=== PATIENT | female | born 1990 | race American Indian/Alaskan Native ===

== ENCOUNTER 2016-06-17 18:56 | Emergency (ER) | payer OTHER ==
[2016-06-17] MEDS ORDERED: MOTRIN PO ONE (19:27)
[2016-06-17] MEDS ORDERED: DECADRON IM ONE (23:24)
[2016-06-17] MEDS ORDERED: NORCO 5/325 PO ONE (23:25)
[2016-06-17 23:48] VITALS: BP 122/78
[2016-06-18] MEDS ORDERED: BICILLIN L-A IM ONE (00:18)
--- NOTE | 2016-06-18 00:23 | Emergency Department Report ---
ED ENT HPI - General Chief complaint: Sore Throat Stated complaint: TONSILITIS Time Seen by Provider: 06/17/16 23:23 Source: patient Mode of arrival: Ambulatory Limitations: No Limitations - History of Present Illness Initial comments: 26 y/o female complain of sore throat x 1 day .pt state she have had strep throat 3 times in the past and was told she need tonsil remove. Onset/Timin -: days(s) Location: throat Severity: moderate Severity scale (0 -10): 7 Quality: aching Consistency: constant Improves with: none Worsens with: swallowing - Related Data Previous Rx's Medication Instructions Recorded Last Taken Type Amoxicillin [Trimox CAP] 500 mg PO Q8H #30 capsule 07/25/14 Unknown Rx predniSONE [Deltasone] 20 mg PO TID #15 tab 07/25/14 Unknown Rx Acetaminophen with Codeine 120 ml PO TID #120 elixir 06/18/16 Unknown Rx [Acetaminophen-Codeine ORAL LIQ] predniSONE [Deltasone] 20 mg PO QDAY #5 tab 06/18/16 Unknown Rx Allergies Allergy/AdvReac Type Severity Reaction Status Date / Time No Known Allergies Allergy Verified 06/17/16 19:33 ED Dental HPI - General Chief complaint: Sore Throat Stated complaint: TONSILITIS Time Seen by Provider: 06/17/16 23:23 Source: patient Mode of arrival: Ambulatory Limitations: No Limitations - Related Data Previous Rx's Medication Instructions Recorded Last Taken Type Amoxicillin [Trimox CAP] 500 mg PO Q8H #30 capsule 07/25/14 Unknown Rx predniSONE [Deltasone] 20 mg PO TID #15 tab 07/25/14 Unknown Rx Acetaminophen with Codeine 120 ml PO TID #120 elixir 06/18/16 Unknown Rx [Acetaminophen-Codeine ORAL LIQ] predniSONE [Deltasone] 20 mg PO QDAY #5 tab 06/18/16 Unknown Rx Allergies Allergy/AdvReac Type Severity Reaction Status Date / Time No Known Allergies Allergy Verified 06/17/16 19:33 ED Review of Systems ROS: Stated complaint: TONSILITIS Other details as noted in HPI Constitutional: denies: chills, fever Eyes: denies: eye pain, eye discharge, vision change ENT: throat pain. denies: ear pain Respiratory: denies: cough, shortness of breath, wheezing Cardiovascular: denies: chest pain, palpitations Endocrine: no symptoms reported Gastrointestinal: denies: abdominal pain, nausea, diarrhea Genitourinary: denies: urgency, dysuria, discharge Musculoskeletal: denies: back pain, joint swelling, arthralgia Skin: denies: rash, lesions Neurological: denies: headache, weakness, paresthesias Psychiatric: denies: anxiety, depression Hematological/Lymphatic: denies: easy bleeding, easy bruising ED Past Medical Hx - Past Medical History Previous Medical History?: No Additional medical history: heart murmur - Surgical History Past Surgical History?: No - Social History Smoking Status: Never Smoker Substance Use Type: Alcohol - Medications Home Medications: Home Medications Medication Instructions Recorded Confirmed Last Taken Type Amoxicillin [Trimox CAP] 500 mg PO Q8H #30 capsule 07/25/14 Unknown Rx predniSONE [Deltasone] 20 mg PO TID #15 tab 07/25/14 Unknown Rx Acetaminophen with Codeine 120 ml PO TID #120 elixir 06/18/16 Unknown Rx [Acetaminophen-Codeine ORAL LIQ] predniSONE [Deltasone] 20 mg PO QDAY #5 tab 06/18/16 Unknown Rx ED Physical Exam - General Limitations: No Limitations General appearance: alert, in no apparent distress - Head Head exam: Present: atraumatic, normocephalic - Eye Eye exam: Present: normal appearance, PERRL - ENT ENT exam: Present: normal exam, mucous membranes moist - Expanded ENT Exam Expanded Throat exam: Positive: tonsillar erythema, tonsillomegaly, tonsillar exudate - Neck Neck exam: Present: normal inspection, tenderness - Respiratory Respiratory exam: Present: normal lung sounds bilaterally. Absent: respiratory distress - Cardiovascular Cardiovascular Exam: Present: regular rate, normal rhythm. Absent: systolic murmur, diastolic murmur, rubs, gallop - GI/Abdominal GI/Abdominal exam: Present: soft, normal bowel sounds - Extremities Exam Extremities exam: Present: normal inspection - Back Exam Back exam: Present: normal inspection - Neurological Exam Neurological exam: Present: alert, oriented X3 - Psychiatric Psychiatric exam: Present: normal affect, normal mood - Skin Skin exam: Present: warm, dry, intact, normal color. Absent: rash ED Course Vital Signs 06/17/16 06/17/16 06/17/16 19:18 23:46 23:47 Temperature 99.4 F 98.3 F Pulse Rate 98 H 84 Respiratory 16 16 16 Rate Blood Pressure 122/79 Blood Pressure 122/78 [Right] O2 Sat by Pulse 100 100 Oximetry ED Medical Decision Making - Medical Decision Making strep A positive pt has strep a positive three times this year.pt is to follow with ENT Critical care attestation.: If time is entered above; I have spent that time in minutes in the direct care of this critically ill patient, excluding procedure time. ED Disposition Clinical Impression: Strep pharyngitis Disposition: DISCHARGED TO HOME OR SELFCARE Is pt being admited?: No Does the pt Need Aspirin: No Condition: Stable Instructions: Strep Throat (ED) Prescriptions: Acetaminophen with Codeine [Acetaminophen-Codeine ORAL LIQ] 120 ml PO TID #120 elixir predniSONE [Deltasone] 20 mg PO QDAY #5 tab Referrals: PRIMARY CARE, [Primary Care Provider] - 3-5 Days YANY PEREZ MD [Staff Physician] - 3-5 Days Forms: Work/School Release Form(ED) Time of Disposition: 00:30
== END 2016-06-18 00:38 | disposition home or self-care (01) ==
LOC: ED 18:56
DX: J02.0 Streptococcal pharyngitis (principal)
CPT/HCPCS: 87430; 96372; 99282; J0561; J1100

== ENCOUNTER 2017-10-09 13:14 | Emergency (ER) | payer OTHER ==
[2017-10-09] MEDS ORDERED: PEPCID PO ONE (14:30)
--- NOTE | 2017-10-09 14:34 | Emergency Department Report ---
Blank Doc - Documentation Documentation: Patient is a 27-year-old black female who is presenting with 2-3 days of upper abdominal pain right greater than left for the past several days. Patient states she woke up this morning very shaky and just didn't feel well. Patient [facility] for [facility]. Patient says she's had some mild nausea but no vomiting and denies diarrhea. Patient also denies any cough. Patient had a low-grade temp a full workup for potential source of infection. Ultrasound of abdomen complete will be done as well as basic blood work and a urinalysis and test. Patient be reassessed by JAYLENE
[2017-10-09 15:04] LABS: Basophils % (Auto) 0.3 % (0.0-1.8); Hematocrit 25.2 % (30.3-42.9); Hemoglobin 7.6 gm/dl (10.1-14.3); Lymphocytes # (Auto) 0.9 K/mm3 (1.2-5.4); Lymphocytes % (Auto) 8.4 % (13.4-35.0); Mean Corpuscular HGB Conc 30 % (30-34); Monocytes # (Auto) 1.1 K/mm3 (0.0-0.8); Monocytes % (Auto) 11.2 % (0.0-7.3); Platelet Count 311 K/mm3 (140-440); Red Blood Count 4.11 M/mm3 (3.65-5.03); Red Cell Distribution Width 18.3 % (13.2-15.2)
[2017-10-09 15:05] LABS: Mean Corpuscular Hemoglobin 19 pg (28-32); Mean Corpuscular Volume 61 fl (79-97)
--- NOTE | 2017-10-09 15:06 | Emergency Department Report ---
ED Abdominal Pain HPI - General Chief Complaint: Abdominal Pain Stated Complaint: ANEMIA/LOW HGB Time Seen by Provider: 10/09/17 14:16 Source: patient Mode of arrival: Ambulatory Limitations: No Limitations - History of Present Illness Initial Comments: Patient is a 27-year-old black female who is presenting with 2-3 days of upper abdominal pain right greater than left for the past several days. Patient states she woke up this morning very shaky and just didn't feel well. Patient went [facility] for evaluation. Patient says she's had some mild nausea but no vomiting and denies diarrhea. Patient also denies any cough. Patient had a low-grade temp a full workup for potential source of infection. Ultrasound of abdomen complete will be done as well as basic blood work and a urinalysis and test. Patient be reassessed by JAYLENE Leg leg okay and drinking okay diagnosis of the kidneys there is. She MD Complaint: abdominal pain, flank pain Onset/Timin -: days(s) Location: bilateral flank Radiation: suprapubic Migration to: suprapubic Severity: moderate Severity scale (0 -10): 4 Quality: aching Consistency: intermittent Improves With: nothing Worsens With: nothing Associated Symptoms: nausea, dysuria. denies: vomiting, diarrhea, fever, chills , constipation, hematemesis, hematochezia, melena, hematuria, anorexia - Related Data LMP (females 10-50): other (now) Previous Rx's Medication Instructions Recorded Last Taken Type Amoxicillin [Trimox CAP] 500 mg PO Q8H #30 capsule 07/25/14 Unknown Rx predniSONE [Deltasone] 20 mg PO TID #15 tab 07/25/14 Unknown Rx Acetaminophen with Codeine 120 ml PO TID #120 elixir 06/18/16 Unknown Rx [Acetaminophen-Codeine ORAL LIQ] predniSONE [Deltasone] 20 mg PO QDAY #5 tab 06/18/16 Unknown Rx Ciprofloxacin HCl [Cipro] 500 mg PO BID #20 tablet 10/09/17 Unknown Rx Ibuprofen 800 mg PO TID PRN #30 tablet 10/09/17 Unknown Rx Allergies Allergy/AdvReac Type Severity Reaction Status Date / Time No Known Allergies Allergy Verified 06/17/16 19:33 ED Review of Systems ROS: Stated complaint: ANEMIA/LOW HGB Other details as noted in HPI Constitutional: denies: chills, fever Eyes: denies: eye pain, eye discharge, vision change ENT: denies: ear pain, throat pain Respiratory: denies: cough, shortness of breath, wheezing Cardiovascular: denies: chest pain, palpitations Endocrine: no symptoms reported Gastrointestinal: denies: abdominal pain, nausea, diarrhea Genitourinary: urgency, dysuria. denies: hematuria, discharge, abnormal menses , dyspareunia Musculoskeletal: denies: back pain, joint swelling, arthralgia Skin: denies: rash, lesions Neurological: denies: headache, weakness, paresthesias Psychiatric: denies: anxiety, depression Hematological/Lymphatic: denies: easy bleeding, easy bruising ED Past Medical Hx - Past Medical History Previous Medical History?: Yes Additional medical history: heart murmur. anemia - Surgical History Past Surgical History?: Yes Additional Surgical History: left eye surgery at age 2 - Social History Smoking Status: Never Smoker Substance Use Type: Alcohol - Medications Home Medications: Home Medications Medication Instructions Recorded Confirmed Last Taken Type Amoxicillin [Trimox CAP] 500 mg PO Q8H #30 capsule 07/25/14 Unknown Rx predniSONE [Deltasone] 20 mg PO TID #15 tab 07/25/14 Unknown Rx Acetaminophen with Codeine 120 ml PO TID #120 elixir 06/18/16 Unknown Rx [Acetaminophen-Codeine ORAL LIQ] predniSONE [Deltasone] 20 mg PO QDAY #5 tab 06/18/16 Unknown Rx Ciprofloxacin HCl [Cipro] 500 mg PO BID #20 tablet 10/09/17 Unknown Rx Ibuprofen 800 mg PO TID PRN #30 tablet 10/09/17 Unknown Rx ED Physical Exam - General Limitations: No Limitations General appearance: alert, in no apparent distress - Head Head exam: Present: atraumatic, normocephalic - Eye Eye exam: Present: normal appearance - ENT ENT exam: Present: mucous membranes moist - Neck Neck exam: Present: normal inspection - Respiratory Respiratory exam: Present: normal lung sounds bilaterally. Absent: respiratory distress - Cardiovascular Cardiovascular Exam: Present: regular rate, normal rhythm. Absent: systolic murmur, diastolic murmur, rubs, gallop - GI/Abdominal GI/Abdominal exam: Present: soft, normal bowel sounds. Absent: distended, tenderness, guarding, rebound, rigid, organomegaly, mass, bruit, pulsatile mass , hernia - Rectal Rectal exam: Present: deferred - Extremities Exam Extremities exam: Present: normal inspection - Back Exam Back exam: Present: normal inspection, full ROM, CVA tenderness (R). Absent: CVA tenderness (L), muscle spasm, paraspinal tenderness, vertebral tenderness, rash noted - Neurological Exam Neurological exam: Present: alert, oriented X3 - Psychiatric Psychiatric exam: Present: normal affect, normal mood - Skin Skin exam: Present: warm, dry, intact, normal color. Absent: rash ED Course Vital Signs 10/09/17 13:29 Temperature 100.1 F H Pulse Rate 96 H Respiratory 16 Rate Blood Pressure 105/62 O2 Sat by Pulse 100 Oximetry ED Medical Decision Making - Lab Data Result diagrams: 10/09/17 14:56 10/09/17 14:53 - Radiology Data Radiology results: report reviewed, image reviewed normal US Abdomen no renal stones. - Medical Decision Making Patient's 27-year-old female history of anemia iron deficiency followed by [facility] for same noncompliant with Iron therapy. Who presents for urinary frequency and urgency 5 days noted flank pain and nausea nausea and vomiting abdominal plain flank pain is resolved at this time to 0/10 patient denies vaginal discharge no pelvic pains no lesions no open sores UA noted for nitrites leukocytes and WBCs were treated for UTI as patient has no nausea vomiting no fever chills is tolerating by mouth intake this is not likely pyelonephritis patient denies symptoms or STI will follow with [facility] in 2-3 days patient DC'd home in stable condition at this time patient verbalizes understanding and agreement with discharge plan Critical care attestation.: If time is entered above; I have spent that time in minutes in the direct care of this critically ill patient, excluding procedure time. ED Disposition Clinical Impression: UTI (urinary tract infection) Qualifiers: Urinary tract infection type: acute cystitis Hematuria presence: without hematuria Qualified Code(s): N30.00 - Acute cystitis without hematuria Disposition: DC TO HOME OR SELFCARE Is pt being admited?: No Does the pt Need Aspirin: No Condition: Good Instructions: Abdominal Pain (ED), Urinary Tract Infection in Women (ED) Prescriptions: Ciprofloxacin HCl [Cipro] 500 mg PO BID #20 tablet Ibuprofen 800 mg PO TID PRN #30 tablet PRN Reason: pain Referrals: PRIMARY CARE, [Primary Care Provider] - 3-5 Days Forms: Work/School Release Form(ED) Time of Disposition: 16:32
[2017-10-09 15:19] LABS: Alanine Aminotransferase 7 units/L (7-56); Albumin 3.8 g/dL (3.9-5); BUN/Creatinine Ratio 10; Blood Urea Nitrogen 7 mg/dL (7-17); Calcium 8.8 mg/dL (8.4-10.2); Hemolysis Index 0
[2017-10-09 15:42] LABS: Bacteria,Urine 1+ /HPF (Negative)
[2017-10-09 15:50] LABS: HCG Qualitative,Urine Negative (Negative)
--- NOTE | 2017-10-09 15:59 | Ultrasound Report ---
FINAL REPORT EXAM: US ABDOMEN COMPLETE HISTORY: low grade temp with upper abdomen pain R> L TECHNIQUE: Standard ultrasound of the abdomen PRIORS: None. FINDINGS: Examination of the gallbladder demonstrates no evidence for gallstones, distention, wall thickening, or pericholecystic fluid. No sonographic Ramos's sign is elicited. Common bile duct is normal in diameter measuring 1.9 mm. The liver is normal and homogeneous in echogenicity without focal abnormality or intrahepatic biliary dilatation. The pancreas is normal in thickness without focal abnormality or pancreatic duct dilatation. The spleen is normal in length measuring 10.3 cm and homogeneous in echogenicity without focal abnormalities. Examination of the kidneys demonstrates both to be normal in size and have normal cortical echogenicity and thickness. The right and left kidneys measure 11.3 cm and 12.9 cm in craniocaudal length, respectively. No evidence for calculi, hydronephrosis, or solid mass is seen in either kidney. The inferior vena cava and aorta are normal. Maximum diameter of the aorta is 1.3 cm in its proximal portion. IMPRESSION: Normal ultrasound of the abdomen.
[2017-10-09 16:07] LABS: Bilirubin,Urine NEG (Negative); Blood,Urine LG (Negative); Color,Urine Yellow (Yellow); Hyaline Casts,Urine 1 /LPF; Mucus,Urine FEW /HPF; Protein,Urine <15 mg/dL mg/dL (Negative); Urobilinogen,Urine < 2.0 mg/dL (<2.0)
[2017-10-09 17:15] VITALS: BP 138/76
== END 2017-10-09 17:14 | disposition home or self-care (01) ==
LOC: ED 13:14
DX: N39.0 Urinary tract infection, site not specified (principal)
CPT/HCPCS: 36415; 76700; 80053; 81001; 81025; 85025; 99284

== ENCOUNTER 2019-03-14 10:10 | Emergency (ER) | payer OTHER ==
--- NOTE | 2019-03-14 11:03 | Emergency Department Report ---
ED Female HPI - General Chief complaint: Urogenital-Female Stated complaint: VAGINAL PAIN/CYST Time Seen by Provider: 03/14/19 10:48 Source: patient Mode of arrival: Ambulatory Limitations: No Limitations - History of Present Illness Initial comments: Patient is 29 years old female with no significant past medical history. Patient presented to the ER complaining of multiple and genital ulcers for the last 3 days. Patient stated that she went to [facility] and she doesn't know what she have and she was given a medicine. He denied any fever or chills. No vaginal discharge. MD Complaint: possible STD, other (multiple genital ulcers.) - Related Data Previous Rx's Medication Instructions Recorded Last Taken Type Amoxicillin [Trimox CAP] 500 mg PO Q8H #30 capsule 07/25/14 Unknown Rx predniSONE [Deltasone] 20 mg PO TID #15 tab 07/25/14 Unknown Rx Acetaminophen with Codeine 120 ml PO TID #120 elixir 06/18/16 Unknown Rx [Acetaminophen-Codeine ORAL LIQ] predniSONE [Deltasone] 20 mg PO QDAY #5 tab 06/18/16 Unknown Rx Ciprofloxacin HCl [Cipro] 500 mg PO BID #20 tablet 10/09/17 Unknown Rx Ibuprofen [Ibuprofen 800] 800 mg PO TID PRN #30 tablet 10/09/17 Unknown Rx 21/Iron Fu/Folic Acid 1 each PO DAILY #30 tablet 02/15/18 Unknown Rx [ Complete Caplet] Allergies Allergy/AdvReac Type Severity Reaction Status Date / Time No Known Allergies Allergy Verified 06/17/16 19:33 ED Review of Systems ROS: Stated complaint: VAGINAL PAIN/CYST Other details as noted in HPI Comment: All other systems reviewed and negative Respiratory: denies: cough ED Past Medical Hx - Past Medical History Additional medical history: heart murmur. anemia - Surgical History Additional Surgical History: left eye surgery at age 2 - Social History Smoking Status: Current Some Day Smoker Substance Use Type: Alcohol, Marijuana - Medications Home Medications: Home Medications Medication Instructions Recorded Confirmed Last Taken Type Amoxicillin [Trimox CAP] 500 mg PO Q8H #30 capsule 07/25/14 Unknown Rx predniSONE [Deltasone] 20 mg PO TID #15 tab 07/25/14 Unknown Rx Acetaminophen with Codeine 120 ml PO TID #120 elixir 06/18/16 Unknown Rx [Acetaminophen-Codeine ORAL LIQ] predniSONE [Deltasone] 20 mg PO QDAY #5 tab 06/18/16 Unknown Rx Ciprofloxacin HCl [Cipro] 500 mg PO BID #20 tablet 10/09/17 Unknown Rx Ibuprofen [Ibuprofen 800] 800 mg PO TID PRN #30 tablet 10/09/17 Unknown Rx 21/Iron Fu/Folic Acid 1 each PO DAILY #30 tablet 02/15/18 Unknown Rx [ Complete Caplet] ED Physical Exam - General Limitations: No Limitations General appearance: alert, in no apparent distress - ENT ENT exam: Present: normal exam, normal orophraynx, mucous membranes moist - Respiratory Respiratory exam: Present: normal lung sounds bilaterally - Cardiovascular Cardiovascular Exam: Present: regular rate, normal heart sounds - GI/Abdominal GI/Abdominal exam: Present: soft. Absent: distended, tenderness, guarding - External exam: Present: other (multiple genital ulcer, painful to touch) - Extremities Exam Extremities exam: Present: normal inspection, full ROM - Neurological Exam Neurological exam: Present: alert, oriented X3 - Skin Skin exam: Present: rash ED Medical Decision Making - Medical Decision Making Patient already have a prescription from [facility] for acyclovir. Patient advised to continue her medication. Critical care attestation.: If time is entered above; I have spent that time in minutes in the direct care of this critically ill patient, excluding procedure time. ED Disposition Clinical Impression: Genital herpes Disposition: DC-01 TO HOME OR SELFCARE Is pt being admited?: No Condition: Stable Instructions: Genital Herpes Simplex (ED) Referrals: [facility] [Provider Group] - 3-5 Days
== END 2019-03-14 11:13 | disposition home or self-care (01) ==
LOC: ED 10:10
DX: A60.00 Herpesviral infection of urogenital system, unspecified (principal); F17.200 Nicotine dependence, unspecified, uncomplicated; F12.10 Cannabis abuse, uncomplicated